=== PATIENT | male | born 1960 | race Hispanic/Latino ===

== ENCOUNTER 2021-01-18 11:30 | Emergency (ER) | payer MEDICAID ==
[~2021-01-18] VITALS: Ht 177.8 cm; Wt 86.2 kg
[2021-01-18 11:38] VITALS: BP 124/84
[2021-01-18] MEDS ORDERED: MECLIZINE HCL 25 MG TABLET PO SCH (12:45)
[2021-01-18 13:25] LABS: BASOPHILS % (AUTO) 0.2 % (0.0-5.0); EOSINOPHILS % (AUTO) 0.2 % (0.0-8.0); HEMATOCRIT 46.3 % (42-54); LYMPHOCYTES % (AUTO) 8.5 % (21.0-51.0); MEAN CORPUSCULAR HEMOGLOBIN 31.8 pg (27.0-33.0); MEAN CORPUSCULAR VOLUME 96.3 fL (79-99); MONOCYTES % (AUTO) 5.1 % (3.0-13.0); NEUTROPHILS % (AUTO) 85.6 % (40.0-77.0); PLATELET COUNT (AUTO) 144 K/uL (130-400); RED BLOOD CELL COUNT(AUTO) 4.81 MIL/uL (4.50-6.20); RED CELL DISTRIBUTION WIDTH 13.6 % (11.0-15.5); WHITE BLOOD COUNT (AUTO) 12.3 K/uL (4.8-10.8)
[2021-01-18 13:39] LABS: POTASSIUM 5.2 mmol/L (3.5-5.1)
[2021-01-18 13:44] LABS: BILIRUBIN,TOTAL 0.6 mg/dL (0.2-1.0); TOTAL PROTEIN, SERUM 8.2 g/dL (6.0-8.3)
[2021-01-18 15:22] VITALS: BP 128/84
[2021-01-18 16:32] LABS: APPEARANCE,URINE Clear (CLEAR); BILIRUBIN,URINE Negative (NEGATIVE); COLOR,URINE Yellow (YELLOW); GLUCOSE, URINE (UA) Negative (NEGATIVE); KETONES,URINE Negative (NEGATIVE); LEUKOCYTE ESTERASE ,URINE Negative (NEGATIVE); NITRATE,URINE Negative (NEGATIVE); OCCULT BLOOD,URINE Negative (NEGATIVE); PH,URINE 5.5 (5.0-8.0); PROTEIN,URINE Negative (NEGATIVE)
[2021-01-18] MEDS ORDERED: MECL-160 PO (16:46)
== END 2021-01-18 16:58 | disposition home or self-care (01) ==
LOC: EDH 11:30
DX: R42 Dizziness and giddiness (principal); R53.1 Weakness; R11.0 Nausea; E03.9 Hypothyroidism, unspecified; I10 Essential (primary) hypertension; E78.5 Hyperlipidemia, unspecified; Z79.899 Other long term (current) drug therapy
CPT/HCPCS: 36415; 70450; 71045; 80053; 81003; 84484; 85025; 93005

== ENCOUNTER 2024-12-19 11:18 | Emergency (ER) | payer MEDICAID ==
[~2024-12-19] VITALS: Ht 172.7 cm; Wt 73.5 kg
[~2024-12-19 11:18] MED LIST: MECL-302 PO
--- NOTE | 2024-12-19 11:45 | EKG ---
[facility] Test Date: 2024-12-19 Test Time: 11:42:35 Pat Name: SHELLY SIMEON Department: [facility] Room: Gender: [employer]: 07 : 1960 Requested By: JOE OVERTON Order Number: [id number] Reading MD: Fernanda Dykes Measurements Intervals [place] Rate: 56 P: 34 ND: 189 QRS: 47 QRSD: 94 T: 50 QT: 383 QTc: 370 Interpretive Statements Sinus rhythm Compared to ECG 01/18/2021 15:21:13 No significant changes Electronically Signed On 12-19-2024 18:39:53 CDT by Fernanda Dykes Please click the below link to view image of tracing.
[2024-12-19 12:12] LABS: ADD UA MICROSCOPIC YES; APPEARANCE,URINE CLEAR (CLEAR); BILIRUBIN,URINE NEGATIVE (NEGATIVE); COLOR,URINE YELLOW (YELLOW); GLUCOSE, URINE (UA) NEGATIVE (NEGATIVE); KETONES,URINE NEGATIVE (NEGATIVE); LEUKOCYTE ESTERASE ,URINE NEGATIVE Leu/uL (NEGATIVE); MUCUS,URINE RARE LPF (None Seen); NITRATE,URINE NEGATIVE (NEGATIVE); OCCULT BLOOD,URINE NEGATIVE (NEGATIVE); PH,URINE 6.5 (5.0-8.0); PROTEIN,URINE NEGATIVE (NEGATIVE); RBC,URINE 0-1 /HPF (0-1); WBC,URINE 0-1 /HPF (0-1)
[2024-12-19 12:34] LABS: BASOPHILS # (AUTO) 0.04 K/uL (0.00-0.20); BASOPHILS % (AUTO) 0.5 % (0.0-5.0); EOSINOPHILS # (AUTO) 0.05 K/uL (0.00-0.70); EOSINOPHILS % (AUTO) 0.7 % (0.0-8.0); HEMATOCRIT 46.5 % (42-54); IMMATURE GRANULOCYTE ABSOLUTE 0.03 K/uL (0-1); LYMPHOCYTES # (AUTO) 1.8 K/uL (1.0-4.8); LYMPHOCYTES % (AUTO) 23.9 % (21.0-51.0); MEAN CORPUSCULAR HEMOGLOBIN 32.3 pg (27.0-33.0); MEAN CORPUSCULAR HGB CONC 33.5 g/dL (32.0-36.0); MEAN CORPUSCULAR VOLUME 96.3 fL (79-99); MONOCYTES # (AUTO) 0.5 K/uL (0.1-1.0); MONOCYTES % (AUTO) 7.3 % (3.0-13.0); NEUTROPHILS # (AUTO) 4.9 K/uL (1.8-7.7); NEUTROPHILS % (AUTO) 67.2 % (40.0-77.0); PLATELET COUNT (AUTO) 131 K/uL (130-400); RED BLOOD CELL COUNT(AUTO) 4.83 MIL/uL (4.50-6.20); RED CELL DISTRIBUTION WIDTH 13.6 % (11.0-15.5); WHITE BLOOD COUNT (AUTO) 7.3 K/uL (4.8-10.8)
[2024-12-19 12:38] LABS: CREATININE 0.9 mg/dL (0.5-1.3); POTASSIUM 4.7 mmol/L (3.5-5.1)
--- NOTE | 2024-12-19 13:16 | ERN ---
ED Note History of Present Illness Stated Complaint: WEAKNESS\ DIZZINESS Chief Complaint: Dizzy/Light Headed Time Seen by MD: 12:01 Dictation: 64-year-old male with a history of vertigo presents to the ED for evaluation of dizziness onset one week ago. Patient reports headaches, blurred vision and lower extremity numbness, but denies any other associated symptoms at this time. As per patient he states he feels like he loses his balance and feels a heavy pressure to his occipital and temporal regions. Allergies: Coded Allergies: No Allergy Information Available (Verified Allergy, Unknown, 01/18/21) No Known Drug Allergies (Unverified Allergy, Unknown, 12/19/24) Home Meds Active Scripts Meclizine HCl (Meclizine HCl) 25 Mg Tablet, 25 MG PO TID for vertigo, #10 TAB 0 Refills Prov:JOE OVERTON MD 12/19/24 Meclizine HCl (Meclizine HCl) 25 Mg Tablet, 25 MG PO TID, #30 TAB Prov:CHANI HINTON 01/18/21 Past Medical History Past Medical History: Arthritis, High Cholesterol Additional Past Medical Hx: THYROID PROBLEM Surgical History: None Surgical History Other: RIGHT TOES AMPUTATED Family History: Negative Social History: Negative Review of System Dictation Constitutional: Negative for fever,chills, and weight loss Eyes: Positive for blurred vision Negative for injury, pain,redness, and discharge ENT: Negative for injury,pain or swelling Cardiovascular: Negative for chest pain, palpitations, and edema Respiratory: Negative for shortness of breath, cough, and wheezing, Abdomen/GI: Negative for abdominal pain, nausea, vomiting, diarrhea, and constipation Back: Negative for injury and pain : Negative for injury, bleeding and discharge MS/Extremity: Negative for injury and deformity Skin: Negative for rash, and discoloration Neuro: Positive for headache, dizziness, lower extremity numbness negative for weakness, tingling, and seizure Psych: Negative for suicide ideation, homicidal ideation, and hallucinations Initial Vital Sign VS Vital Signs Date Time Temp Pulse Resp B/P (MAP) Pulse Ox O2 Delivery O2 Flow Rate FiO2 12/19/24 11:19 97.7 64 16 136/96 100 0 12/19/24 11:19 Room Air* 21 Physical Exam Dictation General: awake, alert, NAD Head/Face: Normocephalic, atraumatic Eyes: PERRL, EOMI, vision at baseline ENT: oral cavity clear, TMs clear, no signs of infection Neck: Trachea midline, supple, no nuchal rigidity Cardiovascular: RRR, normal S1/S2, No MRGs, no JVD Respiratory: CTAB, no respiratory distress, No rales or wheezes Abdomen: Soft, non-tender, non-distended, normal bowel sounds, no guarding or rebound. Skin: Warm, dry, normal turgor, no rash MS/Extremity: Pulses equal, no cyanosis, neurovascular intact, FROM Neuro: COAx4, GCS 15, strength 5/5, CN 2-12 intact, normal cerebellar exam, normal gait, Psych: Normal behavior, mood, and affect normal Results (Laboratory/Radiology) Laboratory/Radiology Laboratory Tests Test 12/19/24 11:40 12/19/24 12:20 Urine Color YELLOW (YELLOW) Urine Appearance CLEAR (CLEAR) Urine pH 6.5 (5.0-8.0) Urine Specific [place] 1.026 (1.001-1.031) Urine Protein NEGATIVE mg/dL (NEGATIVE) Urine Glucose (UA) NEGATIVE mg/dL (NEGATIVE) Urine Ketones NEGATIVE mg/dL (NEGATIVE) Urine Occult Blood NEGATIVE (NEGATIVE) Urine Nitrate NEGATIVE (NEGATIVE) Urine Bilirubin NEGATIVE mg/dL (NEGATIVE) Urine Urobilinogen 2.0 mg/dL (0.2-1.0) H Urine Leukocyte Esterase NEGATIVE [place]/uL Urine RBC 0-1 /HPF (0-1) Urine WBC 0-1 /HPF (0-1) Urine Bacteria None /HPF (None Seen) White Blood Count 7.3 K/uL (4.8-10.8) Red Blood Count 4.83 MIL/uL (4.50-6.20) Hemoglobin 15.6 g/dL (14.0-18.0) Hematocrit 46.5 % (42-54) Mean Corpuscular Volume 96.3 fL (79-99) Mean Corpuscular Hemoglobin 32.3 pg (27.0-33.0) Mean Corpuscular Hemoglobin Concent 33.5 g/dL (32.0-36.0) Red Cell Distribution Width 13.6 % (11.0-15.5) Platelet Count 131 K/uL (130-400) Mean Platelet Volume 11.8 fL (7.5-10.5) H Immature Granulocyte % (Auto) 0.4 % (0-1) Neutrophils (%) (Auto) 67.2 % (40.0-77.0) Lymphocytes (%) (Auto) 23.9 % (21.0-51.0) Monocytes (%) (Auto) 7.3 % (3.0-13.0) Eosinophils (%) (Auto) 0.7 % (0.0-8.0) Basophils (%) (Auto) 0.5 % (0.0-5.0) Neutrophils # (Auto) 4.9 K/uL (1.8-7.7) Lymphocytes # (Auto) 1.8 K/uL (1.0-4.8) Monocytes # (Auto) 0.5 K/uL (0.1-1.0) Eosinophils # (Auto) 0.05 K/uL (0.00-0.70) Basophils # (Auto) 0.04 K/uL (0.00-0.20) Absolute Immature Granulocyte (auto 0.03 K/uL (0-1) Nucleated Red Blood Cells 0.0 % (0.0-0.19) Sodium Level 140 mmol/L (136-145) Potassium Level 4.7 mmol/L (3.5-5.1) Chloride Level 103 mmol/L (101-111) Carbon Dioxide Level 30 mmol/L (21-32) Blood Urea Nitrogen 14 mg/dL (7-18) Creatinine 0.9 mg/dL (0.5-1.3) Glomerular Filtration Rate Calc 95 mL/min (>90) Random Glucose 95 mg/dL (70-105) Total Calcium 9.2 mg/dL (8.5-10.1) Troponin I High Sensitivity < 4 ng/L (4-75) L B-Type Natriuretic Peptide 7 pg/mL (0-100) Labs Reviewed?: Yes EKG Comment: EKG 12/19/2024 time 11:42 a.m. ventricular rate 56, CA 189, QRS D 94, QT 383. Sinus rhythm. No STEMI ED Course ED Course Orders Procedure Category Date Status Time Cbc With Differential LAB 12/19/24 Complete 11:37 Basic Metabolic Panel LAB 12/19/24 Complete 11:37 12 Lead Ekg Tracing- EKG 12/19/24 Complete Technical 11:37 Urinalysis Profile LAB 12/19/24 Complete 11:37 B-Type Natriuretic LAB 12/19/24 Complete Peptide 12:03 Troponin I High LAB 12/19/24 Complete Sensitivity 12:03 Ct Head/Brain W/O CT 12/19/24 Resulted Contrast 12:03 Vital Signs Date Time Temp Pulse Resp B/P (MAP) Pulse Ox O2 Delivery O2 Flow Rate FiO2 12/19/24 14:31 97.7 66 16 132/84 100 Room Air* 0 21 12/19/24 11:19 97.7 64 16 136/96 97 Room Air* 0 21 12/19/24 11:19 97.7 64 16 136/96 100 0 Medical Decision Making MDM MDM: Differential diagnosis: Dizziness, headaches, vertigo Rationale: Tests considered and ordered secondary to shared decision making include: labs, ECG and radiology Previous outside records reviewed: Old ER visits. Risk of complication and/or morbidity or mortality of patient management: None Medications-Per medication reconciliation Need for hospitalization: Patient does meet criteria for hospitalization. Need for emergency major/minor surgery: No There are no social concerns with this patient. Prescription drug management Prescriptions will include symptomatic care Patient's prior external medical records from other ER visits were reviewed by me as indicated. Prior testing and results from previous visits were reviewed. Prior tests were taken into account with medical decision making and resource utilization, independent historian/historians were used to obtain complete medical history. I independently interpreted the test that were performed, results were reviewed by me and considered findings on radiology if ordered. Medical management and examination interpretation discussions were had by me with other qualified healthcare professionals as indicated for the patient's care. DX & DISP Disposition: Discharge Departure Impression: Primary Impression: Vertigo Condition: Stable Scripts Meclizine HCl (Meclizine HCl) 25 Mg Tablet 25 MG PO TID for vertigo, #10 TAB 0 Refills Prov: JOE OVERTON MD 12/19/24 Referrals: LEXIE TREJO DO (PCP) JOE OVERTON MD December 19, 2024 13:16
--- NOTE | 2024-12-19 13:20 | HMCIMG ---
Exam Type: CT HEAD/BRAIN W/O CONTRAST Clinical Information: dizziness Comparison: None CT Dose Index (CTDI): 57.33 mGy Dose Length Product (DLP): 956.79 total mGy-cm Findings: The examination is unremarkable. -white matter junction is preserved. No intra or extra axial lesions or fluid collections are seen. Specifically, and white matter are normal in signal characteristics with normal caliber of ventricles and periventricular cisterns with no evidence of intra or or extra-axial hemorrhage, lacunar infarct, or major territorial infarct, mass, or other abnormality. There are no infarcts. There are no hemorrhages. Periventricular white matter locations are preserved. The orbital contents and structures of the posterior fossa are intact. Impression: Normal CT of the head. This study was performed using dose reduction techniques to include automated exposure control and/or adjustment of the mA and/or kV according to patient size.
[2024-12-19] MEDS ORDERED: MECL-302 PO (14:28)
[2024-12-19 14:31] VITALS: BP 132/84; PULSE 66; RESP 16; TEMP 97.7; O2SAT 100
== END 2024-12-19 14:33 | disposition home or self-care (01) ==
LOC: EDH 11:18
DX: R42 Dizziness and giddiness (principal); E78.00 Pure hypercholesterolemia, unspecified; M19.90 Unspecified osteoarthritis, unspecified site; Z79.899 Other long term (current) drug therapy
CPT/HCPCS: 36415; 70450; 80048; 81001; 83880; 84484; 85025; 93005; 99284

== ENCOUNTER → 2025-06-24 | Outpatient (CLI) | payer MEDICAID ==
--- NOTE | 2025-06-24 18:31 | HMCSR ---
APPROVED REPORT EXAM: Two-dimensional and M-mode echocardiogram with Doppler and color Doppler. INDICATION ICD: R00.2 Palpitations 2D Dimensions RVDd 4.2 cm LVEF(%) 83.4 (>50%) LVED Vol(simp.) 88.0 mL IVSd 0.7 (0.7-1.1cm) FS(%) 53 % LVES Vol(simp.) 45.0 mL LVDd 5.1 (3.8-5.6cm) LA (2D) 3.8 (1.6-4.0cm) LVEF(%, simp.) 50 % PWd 0.7 (0.7-1.1cm) Ao Root(2D) 3.4 (2.0-3.7cm) LA ESV INDEX (BP) 19.67 mL/m2 IVSs 1.1 cm LVOT diam 2.3 (1.8-2.4cm) LVDs 2.4 (2.5-4.0cm) PWs 1.2 cm M-Mode Dimensions EPSS 0.2 cm LA (MM) 4.0 (1.6-4.0cm) Ao Root(MM) 3.9 (2.0-3.7cm) Aortic Valve AoV Vmax 1.1 m/s Ao Peak GR 5.0 mmHg LVOT Vmax 1.1 m/s AoV VTI 0.2 m Ao Mean GR 2.9 mmHg LVOT VTI 0.18 m EDWAR (VMAX) 4.10 cm2 EDWAR (VTI) 4.1 cm2 Mitral Valve MV E Vmax 42.0 cm/s DECEL Time 181 ms MV A Vmax 72.2 cm/s P 1/2 T 61 ms E/A ratio 0.6 MVA (PHT) 3.6 cm2 TDI E/E' Medial 8.6 E/E' Lateral 3.8 Medial E' Peak V 4.87 cm/s Lateral E' Peak V 11.07 cm/s Pulmonary Valve PV Vmax 1.2 m/s PV VTI 0.20 m PV Mean GR 3.6 mmHg PV Peak GR 5.4 mmHg Tricuspid Valve TR Vmax 2.0 m/s RAP (EST) 3 mmHg RVSP 21.0 mmHg TR Peak GR 18.0 mmHg Left Ventricle The left ventricle is normal size. There is normal LV segmental wall motion. There is normal left ventricular wall thickness. LVEF is 50-55%. Stage I diastolic dysfunction. Right Ventricle The right ventricle is borderline dilated. Right ventricular systolic function is borderline to mildly reduced. Atria The left atrium size is normal. The right atrium size is normal. Aortic Valve The aortic valve is normal in structure. No aortic regurgitation is present. There is no aortic valvular stenosis. Mitral Valve The mitral valve is normal in structure. There is no mitral valve regurgitation noted. There is no mitral valve stenosis. Tricuspid Valve The tricuspid valve is normal in structure. There is trace of tricuspid valve regurgitation noted. Pulmonic Valve The pulmonary valve is normal in structure. There is trivial pulmonic valvular regurgitation. Great Vessels The aortic root is normal in size. The IVC is normal in size and collapses >50% with inspiration. Pericardium There is no pericardial effusion. Other Information Quality : Adequate Conclusion LVEF is 50-55%. Stage I diastolic dysfunction. There is trivial pulmonic valvular regurgitation.
== END | disposition home or self-care (01) ==
LOC: RAH 14:33
PROVIDERS: ATTEND Internal Medicine
DX: R00.2 Palpitations (principal)
CPT/HCPCS: 93306